=== PATIENT | female | born 1995 | race Caucasian/White ===

== ENCOUNTER → 2023-08-22 | Emergency (ER) | payer BC, SELFPAY ==
[~2023-08-22] MED LIST: CEFAZOLIN SODIUM 1 GM/VIAL ONE; DIAZEPAM 10 MG/2 ML INJ SYRINGE ONE; KETOROLAC 30 MG/ML INJ ONE; LIDOCAINE 1% 20 ML MDV ONE; METOCLOPRAMIDE 10 MG/2mL INJ ONE; NA CHLORIDE 0.9% 1,000 ML ONE; NA CHLORIDE 0.9% 50 ML ONE; NEOMYCIN/BAC/POLY OPTH 3.5GM ONE; ONDANSETRON 4 MG/2 ML VIAL ONE; TDAP (DIPHTH,PERTUSS(ACELL),TET VAC) 0.5 ML VIAL IMVAC ONE
[2023-08-22 02:13] LABS: Absolute Basophils 0.1 K/uL (0-0.5); Absolute Eosinophils 0.1 K/uL (0-0.5); Absolute Lymphocytes (CBC) 2.7 K/uL (0.7-4.9); Absolute Monocytes 0.4 K/uL (0.1-1.3); Absolute Neutrophil 4.2 K/uL (1.8-8.0); Basophils % 1.3 % (0-1.3); Hematocrit 37.7 % (36.0-45.0); Lymphocytes % 35.5 % (15.3-44.8); MCH 31.3 pg (27.0-35.0); MCHC 34.4 g/dL (32.0-36.0); MCV 91.1 fL (80-100); MPV 7.3 fL (7.6-11.3); Neutrophils % 56.2 % (41.7-73.7); Nucleated Red Blood Cells % 0.2 % (0-0); Platelets 318 thou/uL (152-406); RBC Red Blood Cell Count 4.14 M/uL (3.86-4.86); Red Cell Distribution Width 12.2 % (12.1-15.2)
[2023-08-22 02:49] LABS: Anion Gap 8.6 mEq/L (5.0-15.0)
[2023-08-22 02:57] LABS: Potassium 3.6 mEq/L (3.5-5.1)
[2023-08-22 05:00] LABS: Sqamous Epithelial <5 /HPF (None Seen); Urine Bacteria None Seen /HPF (<20); Urine Bilirubin NEGATIVE (Negative); Urine Blood 2+ (Negative); Urine Clarity Clear (Clear); Urine Color Colorless (Yellow); Urine Culture Reflex Order NOT NEEDED; Urine Glucose NEGATIVE (Negative); Urine Ketones NEGATIVE (Negative); Urine Microscopic Reflex YN ORDER UMIC; Urine Nitrite NEGATIVE (Negative); Urine Protein NEGATIVE (Negative); Urine RBC <5 /HPF (None Seen); Urine Urobilinogen Normal (Normal); Urine WBC <5 /HPF (<5)
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
[2023-08-22 07:45] VITALS: BP 114/84; TEMP 98.2; O2SAT 99
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
== END ==
LOC: ER 01:40
PROC: 0HQ1XZZ Repair Face Skin, External Approach (ICD-10-PCS; principal; 2023-08-22)
DX: S06.0X9A Concussion with loss of consciousness of unspecified duration, initial encounter (principal); S01.81XA Laceration without foreign body of other part of head, initial encounter; F41.0 Panic disorder [episodic paroxysmal anxiety]; V47.5XXA Car driver injured in collision with fixed or stationary object in traffic accident, initial encounter; Z91.018 Allergy to other foods
CPT/HCPCS: 36415; 70450; 71260; 72125; 74177; 80048; 81001; 81025; 82077; 85025; 86850; 86900; 86901; 96361; 96365; 96372; 96375; 99285; J0690; J2001; J2405; J2765; J3360; J7030; Q9967